=== PATIENT | male | born 1935 | race Caucasian/White ===

== ENCOUNTER 2018-02-05 17:21 | Inpatient (IN) ==
[2018-02-05] MEDS ORDERED: DOCUSATE 100 MG CAPSULE PO PRN (18:13)
[2018-02-05] MEDS ORDERED: LIDOCAINE W/ SODIUM BICARB 0.5 ML SYR SUBD PRN (18:13)
[2018-02-05] MEDS ORDERED: CALCIUM CARBONATE 500 MG (TUMS) CHEWABLE TABLET PO PRN (18:13)
--- NOTE | 2018-02-05 18:35 | PDOC ---
HPI - History of Present Illness Date of Service: 02/05/18 Time of Service: 18:00 Chief Complaint: Dry mouth, abnormal labs History of Present Illness: This is an 82 years old male with medical history significant for hypertension who came into the urgent care clinic because he was constipated may be of few days duration alb tests done that showed worsening renal failure. He also had an x-ray which was negative for obstruction. Lab results were received after the patient went home and he was called to be directly admitted here. The patient is somewhat poor historian, he could not tell me the name of his blood pressure medication but he did say that he quit taking it 6 weeks ago because he was feeling dizzy or lightheaded. He mentions taking something for aches and not sure maybe Motrin or Excedrin, initially he said he will take it maybe 3 times week and then a few minutes later he said he takes two every day. He is denying shortness breath, denying chest pain. No fever or shakes. He denied dysuria or frequency. Does have nocturia maybe twice a night. Did say that he had some abdominal discomfort not severe in the lower abdomen going steady cannot describe it more. Currently takes MiraLAX everyday for his bowels he has a bowel movement every for 5 days. Past Medical History Medical History: 1. Hypertension was on medication not sure of the name, and the computer losartan as listed. Surgical History: No surgery before Past Social History: Does not smoke, rarely drinks, no drugs. Lives by himself. Tobacco Use: Never Smoker In the Past 12 Months, Have Used or Abuse Any of the Following Substance: None Alcohol Use: Rarely Medication / Allergies Home Medications: Home Medications 3 Medication Instructions Recorded Confirmed Type losartan 25 mg tablet 25 mg PO QDAY #30 tab 10/18/17 02/05/18 Rx polyethylene glycol 3350 17 17 g PO QDAY #238 g 10/18/17 02/05/18 Rx gram/dose oral powder Allergies/Adverse Reactions: Allergies 3 Allergy/AdvReac Type Severity Reaction Status Date / Time No Known Drug Allergies Allergy Unverified 02/05/18 14:10 Review of Systems - Review of Systems All Systems: Reviewed & No Additional Complaints Except as Stated Exam - General General Appearance: No Acute Distress, Cooperative - Head Head Exam: Normal Inspection - Eye Eye Exam: POSITIVE: Normal Appearance - ENT ENT Exam: POSITIVE: Normal Exam - Neck Neck Exam: Normal Inspection - Respiratory Respiratory Exam: POSITIVE: Clear to Auscultation - Bilaterally - Cardiovascular Cardiovascular Exam: POSITIVE: RRR - GI/Abdominal GI/Abdominal Exam: POSITIVE: Normal Bowel Sounds, Non Tender, Non Distended, Soft, No Organomegaly - Rectal Rectal Exam: POSITIVE: Deferred - External Exam: POSITIVE: Deferred - Extremities Extremities Exam: POSITIVE: Normal Inspection - Back Back Exam: POSITIVE: Normal Inspection - Neurological Neurological Exam: POSITIVE: Alert, CN II-XII Intact, No Facial Droop, Speech Intact / Clear, Moves All Extremities Equally - Psychiatric Psychiatric Exam: POSITIVE: Normal Affect - Integumentary Integumentary Exam: POSITIVE: Normal Color Results - Labs Additional Lab Results: Lab done at the urgent care clinic showed a white count 11.6, hemoglobin 14.4 platelet 234, neutrophil 80.6% lymphocytes 9.9%, sodium 140 potassium 4.8 thyroid 110 bicarbonate 23 BUN 55 creatinine 3.5 bilirubin 1.3, abdominal x-ray was normal Assessment and Plan - Patient Problems (1) Acute on chronic renal failure Current Visit: Yes Status: Acute Comment: His labs are worsened compared to before in November this year his BUN was 29 creatinine was 1.6 and in September BUN was 31 and creatinine 2, so there is an element of worsening. I did ask his granddaughter who is a nurse and works at the hospital to check the medication cabinet. The medication include losartan 25 mg a day but apparently is not taking it and also amlodipine 5 mg a day and also he is not taking it, other idcg-nuo-yfastqf medications include Advil PM, Aleve p.m., Aleve and MiraLAX. So the acute worsening is maybe due nonsteroid anti-inflammatory medications. I think will give him some fluid repeat his labs in the morning will hold all his medications will order an ultrasound of his kidneys to look for obstruction. We'll check a PSA also. Code(s): N17.9 - Acute kidney failure, unspecified; N18.9 - Chronic kidney disease, unspecified (2) Hypertension Current Visit: Yes Status: Acute Comment: He said he checks his blood pressure and blood pressure numbers based on what he said are acceptable. I think we'll hold off on any medications and will watch his blood pressure. Code(s): I10 - Essential (primary) hypertension
[2018-02-05] MEDS: Lactated Ringers 1,000 ML PRIMARY IV SCH (19:49)
[2018-02-06] MEDS: ACETAMINOPHEN 325 MG TABLET PO PRN ×2 (01:11→23:50)
[2018-02-06 05:07] LABS: BASOPHILS # (AUTO) 0.02 10*3/UL; BASOPHILS % (AUTO) 0.2 % (0-1); EOSINOPHILS # (AUTO) 0.04 10*3/UL; EOSINOPHILS % (AUTO) 0.5 % (0-8); Hematocrit [HCT] 35.5 % (42.0-52.0); LYMPHOCYTES # (AUTO) 1.39 10*3/uL; MEAN CORPUSCULAR HEMOGLOBIN 30.4 PG (27-31); MEAN CORPUSCULAR HGB CONC 33.8 g/dL (33-37); MEAN CORPUSCULAR VOLUME 89.9 FL (80-90); MONOCYTES # (AUTO) 1.05 10*3/UL (0.3-0.8); MONOCYTES % (AUTO) 12.4 % (5-15); NEUTROPHILS # (AUTO) 5.93 10*3/UL; NEUTROPHILS % (AUTO) 70.3 % (50-80); RED BLOOD COUNT 3.95 10^6/uL (4.70-6.10)
[2018-02-06 05:26] LABS: BLOOD UREA NITROGEN 53 mg/dL (7-22); BUN/CREATININE RATIO 15.58 (6-20); SERUM ALBUMIN 3.1 g/dL (3.5-4.8)
[2018-02-06 05:50] LABS: PLATELET MORPHOLOGY COMMENT NORMAL MORPHOLOGY (NORM); RBC MORPHOLOGY COMMENT NORMAL MORPHOLOGY (NORM); WBC MORPHOLOGY COMMENT NORMAL MORPHOLOGY (NORM)
[2018-02-06] MEDS: Lactated Ringers 1,000 ML PRIMARY IV SCH ×2 (06:30→19:08)
--- NOTE | 2018-02-06 09:13 | DI ---
BILATERAL RENAL ULTRASOUND, 02/06/2018 7:00 AM: Clinical History: Acute renal failure. Previous Exam: None at this facility. Scans are performed through both kidneys in multiple projections. The right kidney measures 122 mm, a nd the left kidney measures 121 mm. There is no solid or cystic mass in either kidney. There is no hy dronephrosis or hydroureter. Perfusion to both kidneys is symmetric and normal. The bladder is normal . Bilateral ureteral jets are visualized. There is an estimated prevoid bladder volume of 65-70 mL. T here is no post void residual volume. Readin. Normal bilateral renal ultrasound. There is no evidence of obstructive uropathy to explain the pa garry's renal failure. 2. The bladder is normal and there is no post void residual volume.
[2018-02-06 15:46] LABS: BILIRUBIN,URINE NEGATIVE (NEG); CLARITY,URINE CLEAR (CLEAR); COLOR,URINE YELLOW (Y); GLUCOSE, URINE (UA) NEGATIVE (NEG); OCCULT BLOOD,URINE Trace-intact (NEG); PH,URINE 6.5 (5.0-8.5); PROTEIN,URINE NEGATIVE (NEG); UROBILINOGEN,URINE >8.0 EU/dL (0.2)
[2018-02-06 15:51] LABS: RBC,URINE 0-3 /hpf; URINE CRYSTALS RARE; URINE SAMPLE TYPE CLEAN CATCH URINE; WBC,URINE 0-3
--- NOTE | 2018-02-06 17:29 | PDOC(PROG) ---
Date of Service: 02/06/18 Time of Service: 17:24 Interval History: Patient seen twice today, curb sided nephrology, and the concern here is that this seems more consistent with acute tubular necrosis. Most likely related to anti-inflammatories and DAI inhibitor and angiotensin receptor abhijit, however , there is concern as well that this could be Sjogren's syndrome. He has dry mouth and this had that really since the creatinine started to increase in September of this year. That also coincides with the addition of DAI inhibitor and then eventually changing out to angiotensin receptor abhijit. His creatinine was 2.0 in September of this year. His urinary output is good. He denies any chest pain , shortness breath, nausea or vomiting. As suggested by nephrology, and as I would also agree, a urinalysis was done, especially in the setting of renal failure. There was no evidence of proteinuria, but there was a trace intact hematuria with 0-3 red blood cells. Objective : Data - Labs CBC and BMP: 02/06/18 04:50 02/06/18 04:50 Additional Lab Results: 02/06/18 15:34 Urine Occult Blood Trace-intact H Objective : Exam - General General Appearance: No Acute Distress, Cooperative Additional General Exam Details: Vital Signs - Last Taken Temperature 98.7 F 02/06/18 17:00 Pulse Rate 65 02/06/18 17:00 Respiratory Rate 20 02/06/18 17:00 Blood Pressure 174/86 02/06/18 17:00 Pulse Ox 96 02/06/18 17:00 - Head Head Exam: Normal Inspection, Normocephalic, Atraumatic - Eye Eye Exam: No Scleral Icterus - ENT ENT Exam: Mucous Membranes Moist - Respiratory Respiratory Exam: Clear to Auscultation - Bilaterally, Breathing Non Labored - Cardiovascular Cardiovascular Exam: RRR, No Murmur, No Clicks, No Gallops, No Rubs, No JVD - GI/Abdominal GI/Abdominal Exam: Normal Bowel Sounds, Non Tender, Non Distended, Soft - Extremities Extremities Exam: No Clubbing Present, No Edema Present, No Cyanosis Present - Neurological Neurological Exam: Alert, No Facial Droop, Speech Intact / Clear, Moves All Extremities Equally - Psychiatric Psychiatric Exam: Normal Affect, Normal Mood - Integumentary Integumentary Exam: Normal Color, Warm, Dry, Intact Assessment and Plan - Patient Problems (1) Acute on chronic renal failure Current Visit: Yes Status: Acute Code(s): N17.9 - Acute kidney failure, unspecified; N18.9 - Chronic kidney disease, unspecified (2) Hypertension Current Visit: Yes Status: Acute Code(s): I10 - Essential (primary) hypertension Qualifiers: Hypertension type: essential hypertension Qualified Code(s): I10 - Essential (primary) hypertension (3) Dry mouth Current Visit: Yes Status: Acute Code(s): R68.2 - Dry mouth, unspecified - Assessment / Plan Additional Assessment/Plan Details: In terms of his kidneys, I'll continue fluids. I spoke with nephrology. If the creatinine is not much improved overnight, we may need to consider biopsy, as this does look consistent with acute tubular necrosis. Could very likely be DAI inhibitor and angiotensin receptor abhijit/nonsteroidal anti-inflammatory drug related given timing of history as well. With dry mouth symptoms, that could certainly be a blocked parotid gland although there is no inflammation of the parotid gland on exam, there is also no inflammation of any submandibular glands which can be blocked. I may have the patient suck on some hard candies to see if this helps that symptom. But ultimately this could also be Sjogren's syndrome and I think the patient warrants laboratory workup with the symptoms. He has underlying constipation as well and certainly gastrointestinal symptoms can happen with Sjogren syndrome Extensive Sjogren syndrome workup tonight. Check renal panel in a.m. If any improvement, may be able to do this as an outpatient, otherwise may need to consider kidney biopsy and further evaluation. Discussed with the patient's sons at length. They agree with the plan.
[2018-02-06] MEDS ORDERED: AmLODIPine Tab 5 MG TABLET PO ONE (17:42)
[2018-02-06] MEDS ORDERED: Fleet Enema w/Mineral Oil 133ml RECTAL ONE (17:43)
[2018-02-07 05:30] LABS: BLOOD UREA NITROGEN 43 mg/dL (7-22); BUN/CREATININE RATIO 13.03 (6-20); SERUM ALBUMIN 3.1 g/dL (3.5-4.8)
[2018-02-07] MEDS: Lactated Ringers 1,000 ML PRIMARY IV SCH (07:24)
[2018-02-07] MEDS ORDERED: AmLODIPine Tab 5 MG TABLET PO SCH (09:00)
[2018-02-07 10:13] VITALS: RESP 20
[2018-02-07 13:43] VITALS: BP 133/71; TEMP 97.8; O2SAT 94
--- NOTE | 2018-02-07 14:14 | DCSUMMARY ---
Hospitalization Summary Admit Date: 02/05/2018 Discharge Date: 02/07/18 Primary Diagnosis:: acute tubular necrosis, acute renal failure Hospital Course: This very pleasant 83-year-old male who was admitted in the setting of acute renal failure. He had originally presented for constipation, workup revealed that his creatinine was 3.5. He had a creatinine at 2 in September 2017 and of 1.6 in November 2017. It was presumed that his renal failure was related DAI inhibitors /angiotensin receptor blockers/anti-inflammatories. The patient was placed on fluids, and his creatinine improved only minimally to 3.3. An ultrasound was done and did not show any evidence of obstruction and there appeared to be no renal cortical disease on the ultrasound study. I spoke with the hogshead wrecker. A urinalysis was done and it showed some trace hematuria. It was recommended that an outpatient biopsy may need to be considered in this patient. It was also recommended that we follow the patient for another 24 hours to make sure that there were no worsening of kidney disease from the second day of admission to today. We will keep the patient off of all anti-inflammatories and aspirin to prepare the patient for possible kidney biopsy. He had dry mouth syndrome as well and has had that for several months. It could be that this fits Sjogren's syndrome or rheumatoid arthritis. There could be an autoimmune process causing kidney failure at this point. A rheumatoid factor and CRP were markedly elevated and other antibody studies and studies for Sjogren's syndrome are pending at this time. Given there was no worsening of kidney disease overnight, but really no improvement, I spoke with nephrology in [place], [place] again, and they suggested they would get an outpatient appointment arranged for probable kidney biopsy later this next week. The patient specifically told me that he may not be interested in pursuing dialysis but of course a diagnosis is not here yet. No complaints of chest pain, shortness breath, nausea or vomiting and the patient was able to move his bowels 3 times today and he does not feel constipated. He would like to go home. I spoke with patient's son, Eloy, and his other son yesterday. I spoke to Eloy today at the time I examined the patient and he is well aware of the plan and agrees to try to help his father follow this out. Assessment and Plan: 1. As per discharge assessments noted 2. Disposition: Patient is discharged home. 3. Condition on discharge, stable and improved. Prognosis is unclear as we do not know yet what is causing kidney failure 4. Diet: regular diet 5. Activities: resume normal activities 6. Follow-Up: 1. Dr. Diaz in a week 2. Nephrology in a week 7. Medications at the Time of Discharge: Home Medications 3 Medication Instructions Recorded Confirmed Type polyethylene glycol 3350 17 17 g PO QDAY #238 g 10/18/17 02/05/18 Rx gram/dose oral powder Amlodipine Besylate [Norvasc] 5 mg PO DAILY #30 tab 02/07/18 Rx 8. Time, care, counseling and coordination of care for this discharge is less than 30 minutes. Exam - Vitals Vital Signs: Vital Signs Temperature 97.8 F Temperature Source Temporal Artery Scan Pulse Rate [Pulse Oximeter] 70 Respiratory Rate 20 Blood Pressure [Left Arm] 133/71 Pulse Ox 94 Oxygen Delivery Method Room Air Height 6 ft Weight 194 lb 1.6 oz - General General Appearance: No Acute Distress, Cooperative - Head Head Exam: Normal Inspection, Normocephalic, Atraumatic - Eye Eye Exam: POSITIVE: No Scleral Icterus - ENT ENT Exam: POSITIVE: Mucous Membranes Moist - Respiratory Respiratory Exam: POSITIVE: Clear to Auscultation - Bilaterally, Breathing Non Labored - Cardiovascular Cardiovascular Exam: POSITIVE: RRR, No Murmur, No Clicks, No Gallops, No Rubs, No JVD - GI/Abdominal GI/Abdominal Exam: POSITIVE: Normal Bowel Sounds, Non Tender, Non Distended, Soft - Extremities Extremities Exam: POSITIVE: No Clubbing Present, No Edema Present, No Cyanosis Present - Neurological Neurological Exam: POSITIVE: Alert, Oriented x 3 (The patient knows who he is, he knows he is here for medical issues and he knows that he is in the hospital.) , No Facial Droop, Speech Intact / Clear, Moves All Extremities Equally - Psychiatric Psychiatric Exam: POSITIVE: Normal Affect, Normal Mood Data Peritnent Studies: 02/06/18 02/06/18 02/06/18 04:50 04:50 04:50 WBC 8.45 Hgb 12.0 L Hct 35.5 L Plt Count 189 ESR Sodium Potassium Chloride Carbon Dioxide Anion Gap BUN Creatinine 3.4 H BUN/Creatinine Ratio Glucose Calculated Osmolality Calcium Phosphorus Magnesium C-Reactive Protein Albumin PSA Screen 0.629 Urine Occult Blood Rheumatoid Factor Anti-Nuclear Antibody SS-A/Ro IgG Antibody SS-B/La Antibody Anti-Centromere Ab 02/06/18 02/06/18 02/06/18 15:34 17:37 17:37 WBC Hgb Hct Plt Count ESR 84 H Sodium Potassium Chloride Carbon Dioxide Anion Gap BUN Creatinine BUN/Creatinine Ratio Glucose Calculated Osmolality Calcium Phosphorus Magnesium C-Reactive Protein Albumin PSA Screen Urine Occult Blood Trace-intact H Rheumatoid Factor Anti-Nuclear Antibody Pending SS-A/Ro IgG Antibody Pending SS-B/La Antibody Pending Anti-Centromere Ab Pending 02/06/18 02/06/18 02/07/18 17:37 17:37 04:50 WBC Hgb Hct Plt Count ESR Sodium 136 Potassium 4.5 Chloride 109 Carbon Dioxide 22 L Anion Gap 5 BUN 43 H Creatinine 3.3 H BUN/Creatinine Ratio 13.03 Glucose 90 Calculated Osmolality 292.0 Calcium 8.4 L Phosphorus 3.5 Magnesium 2.0 C-Reactive Protein 19.9 H Albumin 3.1 L PSA Screen Urine Occult Blood Rheumatoid Factor 84.4 H Anti-Nuclear Antibody SS-A/Ro IgG Antibody SS-B/La Antibody Anti-Centromere Ab Procedures: [address] [facility] [place] [address] PH: DD: [phone] FAX: [phone] ~DIAGNOSTIC IMAGING REPORT~ Patient: SAMARA MORROW : 1935 Sex: M Age: 83 Exam Name: US Retroperitoneum Exam Date: 02/06/18 Report # : [id number] CPT Code: 28303 EMR/MR #: [id number] Ordering: Joana Tejada Admiting: JOANA TEJADA MD. Primary: Devon Diaz MD Attending: JOANA TEJADA MD. Signed BILATERAL RENAL ULTRASOUND, 02/06/2018 7:00 AM: Clinical History: Acute renal failure. Previous Exam: None at this facility. Scans are performed through both kidneys in multiple projections. The right kidney measures 122 mm, and the left kidney measures 121 mm. There is no solid or cystic mass in either kidney. There is no hydronephrosis or hydroureter. Perfusion to both kidneys is symmetric and normal. The bladder is normal. Bilateral ureteral jets are visualized. There is an estimated prevoid bladder volume of 65-70 mL. There is no post void residual volume. Readin. Normal bilateral renal ultrasound. There is no evidence of obstructive uropathy to explain the patient's renal failure. 2. The bladder is normal and there is no post void residual volume. Dictated By: 02/06/18 0901 ALFREDO RIOS MD. Signed By: 02/06/18 0913 ALFREDO RIOS MD. Patient Problems - Patient Problem List (1) Acute on chronic renal failure Current Visit: Yes Status: Acute Code(s): N17.9 - Acute kidney failure, unspecified; N18.9 - Chronic kidney disease, unspecified Qualifiers: Acute renal failure type: with acute tubular necrosis Chronic kidney disease stage: stage 3 (moderate) Qualified Code(s): N17.0 - Acute kidney failure with tubular necrosis; N18.3 - Chronic kidney disease, stage 3 (moderate ) Category: Medical (2) Hypertension Current Visit: Yes Status: Acute Code(s): I10 - Essential (primary) hypertension Qualifiers: Hypertension type: essential hypertension Qualified Code(s): I10 - Essential (primary) hypertension Category: Medical (3) Dry mouth Current Visit: Yes Status: Acute Code(s): R68.2 - Dry mouth, unspecified Category: Medical (4) Constipation Current Visit: Yes Status: Acute Code(s): K59.00 - Constipation, unspecified Qualifiers: Constipation type: unspecified constipation type Qualified Code(s): K59.00 - Constipation, unspecified Category: Medical
[2018-02-08 14:29] LABS: Centromere Antibody <0.2 U
[2018-02-09 19:12] LABS: Complement C3 118 mg/dL (75 - 175)
== END 2018-02-07 14:29 | disposition home or self-care (01) | DRG 684 ==
LOC: MED/SURG → OBSVTOIN 18:13
PROVIDERS: ADMIT Internal Medicine; ATTEND Internal Medicine